=== PATIENT | female | born 1975 | race Two or more races ===

== ENCOUNTER 2025-05-21 14:35 | Outpatient (AMB) | payer MEDICAID, SELFPAY ==
[2025-05-21 15:33] VITALS: BP 127/84; PULSE 87; RESP 18; TEMP 36.4; O2SAT 98; BMI 31.3
--- NOTE | 2025-05-21 15:33 | AMB.GYNCLNOT ---
Vital Signs 05/21/25 15:33 Height 1.63 m Height Method Stated Weight 82.781 kg Weight Measurement Method Standing Scale BMI 31.3 BP 127/84 Blood Pressure Source Automatic Cuff Blood Pressure Location Right Upper Arm Position Sitting Respiration 18 Pulse 87 Pulse Source Monitor Temp 97.5 F Temp Source Temporal Artery Scan Pulse Oximetry (%) 98 Oxygen Delivery Method Room Air Allergies/Home Meds Allergies & Medications Allergies latex Allergy (Verified 05/21/25 15:34) Medication Reconciliation cetirizine 10 mg tablet (Zyrtec) 10 mg PO QDAY 05/02/24 [History Confirmed 05/21/25] loratadine 10 mg tablet 10 mg PO QDAY 05/02/24 [History Confirmed 05/21/25] montelukast 10 mg tablet 10 mg PO QDAY 05/02/24 [History Confirmed 05/21/25] tranexamic acid 650 mg tablet 650 mg PO TID 7 days #21 tabs 05/21/25 [Rx] Intake Visit Data Collection New Patient or Established: Established Patient (seen at [facility] within 3 years) Reason for Visit:: REFERRAL IRREGULAR MENSES Seen by Clinical Staff ONLY (RN/MA): No Software Database Architect Required: Yes Software Database Architect's name/title: ANJU GOOD MA Do You Feel Safe at Home: Yes Authorities Contacted: N/A PCP or OBGYN visit in last 3 months: No Hx Now: No Are you currently on any form of Control: No Last menstrual period: 05/09/25 Pain Present Currently: No Pain Scale Used: [place]/Numerical Pain scale:: 0 Smoking Status Smoking Status: Never smoker Immunizations Flu Vaccine in the Last 12 Months: No Flu Vaccine Exclusion Criteria: No Exclusion Criteria Upstairs Maid history Upstairs Maid History Menstrual regularity: irregular Flow: normal Monthly: Yes How many days does period last: 8 Age at menarche: 13 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 1. Little interest or pleasure in doing things: not at all 2. Feeling down, depressed, or hopeless: not at all Total score: 0 PHQ-9 3. Trouble falling or staying asleep, or sleeping too much: Not at all 4. Feeling tired or having little energy: Not at all 5. Poor appetite or overeating: Not at all 6. Feeling bad about yourself - or that you are a failure or have let yourself or your family down: Not at all 7. Trouble concentrating on things, such as reading the newspaper or watching television: Not at all 8. Moving or speaking so slowly that other people could have noticed? - Or the opposite - being so fidgety or restless that you have been moving around a lot more than usual: not at all 9. Thoughts that you would be better off or of hurting yourself in some way: Not at all Total score: 0 If you checked off any problems, how difficult have these problems made it for you to do your work, take care of things at home, or get along with other people?: not difficult at all Source: Developed by Drs. Alberto Esqueda, Mercedez Reddy, Dago Villanueva and colleagues, with an educational luis e from [employer]. Depression screen completed yes Social History Living Situation History Marital Status: Lives With: Family Housing: House Tobacco History Smoking Status: Never smoker Second Hand Smoke Exposure: No Alcohol History Alcohol Intake: Never Domestic Abuse History Do You Feel Safe at Home: Yes History of Present Illness HPI Narrative Regular infections, fatigue from irregular cycles, anemia Jeremie Ackerman is a 49-year-old female who was referred by her PCP from [facility] for evaluation of regular infections and irregular menstrual cycles. The patient has been experiencing ongoing fatigue related to her irregular cycles, including periods of amenorrhea lasting approximately 2 weeks. She has been receiving treatment for anemia from her primary care provider and is currently taking iron medication every other day. The patient continues to have regular infections, though the specific nature, frequency, or location of these infections was not detailed. Medical History: - Anemia, being treated by primary care physician - Regular infections (recurrent) Medications: - Iron 24-hour medication every other day for anemia treatment - Comprehensive Metabolic Panel (CMP): Glucose 86 mg/dL, remainder within normal limits - Hemoglobin A1c: 5.1% - Iron studies: - Iron binding capacity 379 (normal) - Iron level 19 (low) - Iron saturation 5% (critically low) - B12 and folate: Within normal limits - Hepatitis panel: Within normal limits - EKG: Normal sinus rhythm, compared to previous study from January (prior year) Exam General General Appearance: alert, in no apparent distress and healthy appearing Head Head exam: atraumatic Neck Neck exam: Present normal inspection and trachea midline Chest Chest inspection: Present normal inspection and symmetric chest wall rise External exam: Present normal external exam; Absent tenderness Neuro Neurological exam: Present oriented X3 Psych Psychiatric exam: Present normal affect and normal mood Office Procedures [facility] Clinic LOC & Office Proc's Nursing/Assessment Patient Status: Established Patient OB Clinic Nursing Assessment: Medication Reconciliation, Update PMH in EMR and Vital Signs OB Clinic Coordination of Care: Complex Care and Chronic Disease 1-5, Education Complex Pt/Fam, Consent,records obtained, informed consent, Lab and Imaging orders, Results/Orders obtained and Staff clarify orders Established Patient Charge Established Patient Point Assignment: 110 Established Patient Point Charge: EP Level 3 (80-115) Assessment & Plan Diagnosis / Problem List (1) Abnormal uterine and vaginal bleeding, unspecified: Status: Acute Plan Iron deficiency anemia Assessment: Patient has been treated for anemia by her PCP and is currently taking iron medication every other day. Iron studies reveal critically low iron saturation of 5% and low iron level of 19, with normal iron binding capacity of 379. B12 and folate levels are within normal limits. Patient continues to experience fatigue related to her anemia and irregular menstrual cycles. Plan: - Continue iron medication every other day as prescribed by PCP - Follow-up in one month with ultrasound and labs Irregular menstrual cycles Assessment: Patient reports irregular cycles contributing to her fatigue, with episodes lasting 2 weeks. The irregular bleeding pattern may be contributing to her iron deficiency anemia. Plan: - Follow-up in one month with ultrasound and labs Recurrent infections Assessment: Patient was referred by her PCP for evaluation of regular infections. No specific details about the type or frequency of infections were documented in this visit. Plan: - Follow-up in one month with ultrasound and labs
== END 2025-05-21 15:46 | disposition home or self-care (01) ==
PROVIDERS: Supervising Provider Obstetrics & Gynecology; Visit Provider Obstetrics & Gynecology
DX: N93.9 Abnormal uterine and vaginal bleeding, unspecified (principal); D50.9 Iron deficiency anemia, unspecified; Z91.040 Latex allergy status
CPT/HCPCS: 99213; G0463